=== PATIENT | male | born 1955 | race Caucasian/White ===

== ENCOUNTER 2023-01-11 00:35 | Day surgery (SDC) | payer OTHER, MEDICARE, SELFPAY ==
[2023-01-05 08:35] VITALS: BMI 27.8
--- NOTE | 2023-01-05 08:41 | PC.NURSE ---
Report to the Outpatient Waiting Room, entrance under the green pavilion located off [facility], at time 0615 on date 01/11/23. Planned Procedure Time: 0815. Time changes happen often and if your time is changed the preop area will call you the afternoon before. - You and your visitor will be asked to self-screen and do not enter if you have any COVID symptoms. - A mask is optional within the hospital at this time. Patients may have clear liquids (water, carbonated beverages, clear teas, apple juice) until 3 hours prior to surgery with a maximum of 20 ounces. - No food from midnight until time of surgery Take the following medications with a SIP of water the morning of surgery: METOPROLOL DO NOT STOP ANY OF YOUR OTHER PRESCRIPTION MEDICATIONS PRIOR TO SURGERY ?EXCEPT THE FOLLOWING Medications to discontinue per physician: ASPIRIN Date to take last dose: CHECK WITH DR. CROFT Please no make-up, nail belarusian, hairspray, perfume, deodorant, or body powder the day of surgery. No jewelry (including any body piercings) or valuables the day of surgery, leave them at home. Please take a shower or bath the night before, or the morning of, surgery with an antibacterial soap. Wear comfortable, loose fitting clothing. - Jewelry must be removed prior to entering the operating room. Rings and piercings that are not removed may be cut off. - The hospital will not accept responsibility for valuables. - Please leave all valuables, including medications, at home the day of surgery. If you are going home after surgery, a licensed lift driver must drive you home. - NO public transportation without another adult if you receive anesthesia. - We recommend that an adult stay with you for 24 hours following discharge. - We also recommend that you do not drive, make important decision, drink alcoholic beverages, or take any drugs that were not prescribed by your health care provider for at least 24 hours after your discharge time. Follow any additional instructions given to you from your surgeon. If you or anyone in your household have experienced Covid symptoms in the past week, please notify your surgeon or the nurse liaison at the phone number below for possible testing. Telephone instructions given to PT - HARVEY HERRING and asked if any additional questions and then verbalized understanding. Patient advised to call surgeon office or pre surgery nurse liaison [phone] if any additional questions.
[2023-01-11] VITALS (8 sets, daily range): BP systolic 130–165; BP diastolic 68–92; PULSE 58–66; RESP 11–20; TEMP 36.2–36.6; O2SAT 97–100
--- NOTE | 2023-01-11 07:09 | P.PNAN_ITS ---
Anes - Initial Pre Proc Eval Procedure: Operation Date: 01/11/23 08:15 Proposed Procedures p Right Thyroid Lobectomy - Puma Oliva MD Date/Time: 01/11/23 07:09 Surgeon: Puma Oliva MD Pre Op Diagnosis: thyroid nodules Patient Data Age: 68 Gender: M Height: 1.8 m Weight: 90.5 kg Last Vital Signs Temp 36.6 C 01/11/23 06:52 Pulse 65 01/11/23 06:52 Resp 18 01/11/23 06:52 BP 153/79 H 01/11/23 06:52 Pulse Ox 100 01/11/23 06:52 O2 Del Method Room Air 01/11/23 06:52 Allergies Allergy/AdvReac Type Severity Reaction Status Date / Time Penicillins Allergy Hives Verified 01/11/23 06:57 Home Medications Medication Instructions Recorded Confirmed Type aspirin 81 mg chewable tablet 81 mg PO DAILY 01/05/23 01/11/23 History metoprolol tartrate 25 mg tablet 12.5 mg PO BID 01/05/23 01/11/23 History rosuvastatin 5 mg tablet 5 mg PO HS 01/05/23 01/11/23 History Patient hx anesthesia problems: none Family hx anesthesia problems: none Results Review: All pre-operative results and documents have been reviewed as part of the pre- operative evaluation. [facility] Past Medical History Medical History (Updated 01/11/23 @ 07:10 by Rafael Almeida DO) GERD (gastroesophageal reflux disease) Hyperlipidemia Thyroid nodule Surgical History Surgical History (Updated 01/11/23 @ 07:10 by Rafael Almeida DO) History of mitral valve repair Social History Social History Smoking status: Former smoker Tobacco type: cigars Additional smoking assessment comments: MANY YEARS AGO Alcohol intake: current Alcohol use details: VERY RARE Substance use: never Substance use type: does not use Living arrangements: with family Spiritual care concerns: No Anes - Eval Final PreProcedure Day of Procedure 01/11/23 07:09 Patient weight: overweight Heart: regular rate and rhythm Lungs: clear to auscultation Airway: Mallampati scale class II Neurological: alert and oriented Last oral intake: >/= 8 hours ASA classification: III Emergent: no Anesthetic plan: proceed Anesthesia type and monitoring: general ETT and standard monitoring Results Review: All pre-operative results and documents have been reviewed as part of the pre- operative evaluation. Informed Consent: The patient's anesthetic plan and its attendant risks and benefits were discussed with the patient/family/POA. Questions were solicited and answers provided to the satisfaction of the patient/family/POA.
--- NOTE | 2023-01-11 07:09 | P.HP_ITS ---
H&P: HPI History of Present Illness Date/Time: 01/11/23 07:09 Chief Complaint: right thyroid nodule Review of Systems Review of Systems: All systems reviewed & are unremarkable except as noted in HPI and below [facility] Past Medical History Medical History (Updated 01/11/23 @ 08:10 by Puma Oliva MD) GERD (gastroesophageal reflux disease) Hyperlipidemia Thyroid nodule Surgical History Surgical History (Updated 01/11/23 @ 07:10 by Rafael Almeida, ) History of mitral valve repair Social History Social History Smoking status: Former smoker Tobacco type: cigars Additional smoking assessment comments: MANY YEARS AGO Alcohol intake: current Alcohol use details: VERY RARE Substance use: never Substance use type: does not use Living arrangements: with family Spiritual care concerns: No Meds Home Medications and Allergies Home Medications Medication Instructions Recorded Confirmed Type aspirin 81 mg chewable tablet 81 mg PO DAILY 01/05/23 01/11/23 History metoprolol tartrate 25 mg tablet 12.5 mg PO BID 01/05/23 01/11/23 History rosuvastatin 5 mg tablet 5 mg PO HS 01/05/23 01/11/23 History Allergies Allergy/AdvReac Type Severity Reaction Status Date / Time Penicillins Allergy Hives Verified 01/11/23 06:57 Vital Signs Vital Signs - 24 hr 01/11/23 06:52 Temperature 36.6 C Pulse Rate 65 Respiratory Rate 18 Blood Pressure 153/79 H Pulse Oximetry 100 Oxygen Delivery Room Air Exam Narrative: 5.6cm right thyroid nodule, previous FNA follicular neoplasm. Otherwise asymptomatic, no other ENT findings Assessment and Plan Assessment and plan (1) Thyroid nodule: Code(s): E04.1 - Nontoxic single thyroid nodule Status: Acute Assessment and Plan: Lasha has a 5.6cm right thyroid nodule, biopsied as follicular neoplasm. Here today for right lobectomy. Laryngeal nerve monitor. Held aspirin for last 7 days. r/b/a reviewed, pt and understand and agree to proceed. Right neck marked. All questions answered. Plan as above
[2023-01-11] MEDS: LACTATED RINGERS 1,000 ML 30 ML IV CONT ×2 (07:25→10:35)
[2023-01-11] MEDS: ACETAMINOPHEN 500 MG TABLET 1000 MG PO (07:25)
--- NOTE | 2023-01-11 08:11 | WPDHPUPDATE1 ---
History and Physical Update Update Date/Time: 01/11/23 08:11 History and Physical has been reviewed, including an updated exam of the patient. There are NO changes in the patient's condition. Risks, benefits, and alternatives have been discussed and questions answered. Patient agrees to proceed with procedure.
[2023-01-11] MEDS: CLINDAMYCIN 600 MG/D5W 50 ML 600 MG/50 ML PIGGYBACK 100 MG IVPB (08:36)
[2023-01-11] MEDS: LIDO 1%/EPINEPHRINE 1:100,000 50 ML VIAL INFILTRATE (09:18)
--- NOTE | 2023-01-11 10:35 | W.PM.PROC2 ---
Procedure Note - Detailed Date of Procedure 01/11/23 Pre-op Diagnosis thyroid nodules Post-op Diagnosis Same Procedure Performed Right thyroid lobectomy with laryngeal nerve monitoring Surgeon Puma Oliva MD Anesthesia General Indications Right thyroid nodule Findings 6cm right thyroid mass. RLN fully intact and stimulated at end of case. Surgicel placed in right thyoid fossa Description of Procedure On the date of the procedure the patient was met in the preoperative area. The risks and benefits of the procedure reviewed with the patient who elected to proceed.? The right neck was marked. The patient was brought back to the operating room by the anesthesia team and underwent general endotracheal anesthesia with NIM tube.? Once an adequate plane of anesthesia was obtained a timeout was performed to assure the correct patient identity and procedure to be performed which they were. The patient's neck landmarks were marked and the proposed incision was injected with 1% lidocaine with 1:100,000 epinephrine.? The patient was then prepped and draped in the normal fashion for a thyroidectomy.? Neuro monitoring with a NIM endotracheal tube and nerve monitor were utilized throughout the surgery.? A shoulder roll was placed. A 6 cm incision was made two finger breadths above the sternal notch in a skin crease.?The incision was carried through subcutaneous tissue to the subcutaneous fat.? Electrocautery was used down to the level of the platysma which was incised. The strap muscles were identified and at the midline through the raphae.? The thyroid was identified and the strap muscles were elevated off of the right lobe. Due to the size of the nodule, the right strap muscle was divided. The right thyroid lobe was retracted medially and blunt dissection was carried out to free the thyroid from the surrounding strap muscles.? The superior pole of the thyroid was identified and the vessels were dissected and cauterized and ligated using harmonic scalpel.? The inferior pole was then identified and the vessels were similarly ligated with harmonic scalpel.? The thyroid was retracted medially and the superior parathyroid gland was identified and was dissected free from the thyroid gland.? Due to the gland and nodule being large, it was deep around the clavicle inferiorly and along the cervical spine posteriorly. This was carefully elevated out of the neck with finger dissection to deliver the lobe out of the neck and allow for dissection on the posterior surface to release the gland from surrounding attachments near the nerv.e The recurrent laryngeal nerve was then identified and dissected free of surrounding tissue. The nerve was confirmed with the prass probe as intact and the correct anatomic tissue. With the thyroid free from the recurrent nerve, it was then elevated and retracted medially and dissected free from the trachea. [place]?s ligament was taken down with bipolar and monopolar cautery.? The pyramidal lobe was also dissected free from surrounding tissue using harmonic. The wound cavity was examined carefully. No bleeding was noted. Hemostasis obtained and confirmed with bipolar cautery. Surgicel was placed in the right tracheal groove. The strap muscles were re-approximated with a 3-0 Vicryl.? The platysma was closed with 3-0 Vicryl.? The deep dermal sutures were placed using 4-0 monocryl.? The skin was closed with a 4-0 Monocryl running subcuticular.? The incision was closed with dermabond. No drain was placed. The care the patient was transferred back to the anesthesia team and the patient was awoke in the operating room and was transferred back to the PACU in stable condition without complication. Puma Oliva M.D. Estimated Blood Loss 30 Drains No Packing Yes (surgicel) Pathology Yes (right thyroid lobectomy, suture rubio superior) Complications No immediate complications Condition Stable Disposition PACU
[2023-01-11] MEDS: fentaNYL CITRATE INJ (*CRX) 100 MCG/2 ML VIAL 25 MCG IV PUSH ×2 (11:02→11:11)
[2023-01-11] MEDS: oxyCODONE HCL (*CRX) 5 MG TAB IR PO (11:59)
== END 2023-01-11 12:31 | disposition home or self-care (01) ==
PROVIDERS: Visit Provider Otolaryngology
PROC: (CPT 60220; principal; 2023-01-11 08:15)
DX: D34 Benign neoplasm of thyroid gland (principal); E78.5 Hyperlipidemia, unspecified; Z79.82 Long term (current) use of aspirin; Z87.891 Personal history of nicotine dependence
CPT/HCPCS: 60220; 88307; A9270; J0330; J1100; J2405; J2704; J3010; J7120